=== PATIENT | female | born 1970 | race Two or more races ===

== ENCOUNTER 2024-12-27 14:33 | Outpatient (AMB) | payer OTHER, SELFPAY ==
--- NOTE | 2024-12-27 14:47 | PD.GSCLVISIT ---
[facility] - [facility] 12/27/24 14:50 Height 1.52 m Height Method Stated Weight 97.579 kg Weight Measurement Method Standing Scale BMI 42.0 BP 133/89 H Blood Pressure Source Automatic Cuff Blood Pressure Location Left Upper Arm Position Sitting Respiration 20 Pulse 99 Pulse Source Monitor Temp 97.3 F Temp Source Temporal Artery Scan Pulse Oximetry (%) 95 Oxygen Delivery Method Room Air Med/Allergies Allergies & Medications Allergies No Known Allergies Allergy (Verified 12/27/24 14:51) Medication Reconciliation No Known Home Medications 12/27/24 [History Confirmed 12/27/24] MA Intake Visit Data Collection New Patient or Established: New Patient (never been to [facility]) Seen by Clinical Staff ONLY (RN/MA): No Reason for Visit:: REFERRAL COLONOSCOPY Pain Present Currently: No First Front Ventilator Required: No PCP or OBGYN visit in last 3 months: Yes Hx Now: No Do You Feel Safe at Home: Yes Authorities Contacted: N/A Smoking Status Smoking Status: Never smoker Immunization / Flu Flu Vaccine in the Last 12 Months: Yes Flu Vaccine Exclusion Criteria: Already Received Past Medical History Social History SMOKING STATUS: Smoking status: Never smoker HPI HPI Narrative 54F referred for first screening colonoscopy. She denies any changes in bowel habits, blood in stool, anorexia and unintentional weight loss PMH: None PSHx: None Meds: None Allergies: NKDA Family hx: no known CRC ROS Review of Systems Systems Reviewed: All systems reviewed, normal except as documented Objective/Exam General General Appearance: alert, cooperative and well groomed Resp Respiratory exam: Absent respiratory distress Assessment & Plan Diagnosis / Problem List (1) Encounter for screening colonoscopy for [id number] patient: Status: Acute Assessment & Plan: 54F presenting for first screening colonoscopy. I explained benefits/risks including bleeding, perforation requiring emergency surgery as well as the possibility of needing to abort prematurely for safety. All questions were answered and pt is agreeable to proceeding Office Procedures GNS Level of Care Nursing/Assessment Patient Status: Initial/New Patient Nursing Assessment/Reassesment: Medication Reconciliation, Update PMH in EMR and Vital Signs Coordination of Care: Complex Care and Chronic Disease 1-5, Consent,records obtained, informed consent, Education Simp Pt/Fam, Results/Orders obtained and Staff clarify orders New Patient Charge New Patient Point Assignment: [id number] New Patient Point Charge: PATHOLOGY ASSISTANT Level 3 ([id number]) Patient Portal Questionaires Social History Tobacco History Smoking Status: Never smoker Domestic Abuse History Do You Feel Safe at Home: Yes Review of Systems Report any current symptoms Only answer those that you have currently: Past Medical History Past Medical History Have you ever been diagnosed with any of the following:
[2024-12-27 14:50] VITALS: BP 133/89; PULSE 99; RESP 20; TEMP 36.3; O2SAT 95; BMI 42.0
== END 2024-12-27 15:15 | disposition home or self-care (01) ==
PROVIDERS: PCP Nurse Practitioner Family; Referring Provider Nurse Practitioner Family; Supervising Provider Surgery; Visit Provider Surgery
DX: Z12.11 Encounter for screening for malignant neoplasm of colon (principal)
CPT/HCPCS: 99203; G0463

== ENCOUNTER 2025-02-01 06:50 | Day surgery (SDC) | payer OTHER, SELFPAY ==
[2025-01-31 12:47] LABS: HCG Qualitative,Urine Negative
[2025-01-31 14:59] VITALS: BMI 40.6
[2025-02-01] VITALS (10 sets, daily range): BP systolic 149–199; BP diastolic 86–123; PULSE 67–91; RESP 16–20; TEMP 36.3–36.5; O2SAT 95–100; BMI 40.6
--- NOTE | 2025-02-01 08:14 | SUR.OPER ---
pt received from OR in recovery bay 1. pt asleep but responds to voice, breathing unlabored on room air. v/s stable. report received from Roxane GARCÍA.
--- NOTE | 2025-02-01 08:38 | SUR.PHASEII ---
pt able to tolerate oral fluids without difficulty swallowing or nausea/vomiting.
--- NOTE | 2025-02-01 09:00 | SUR.PHASEII ---
pt awake and alert, pt meets d/c criteria. pt v/s stables. pt awaiting ride in wheelchair in bay 6.
--- NOTE | 2025-02-01 09:40 | SUR.PHASEII ---
pt awake and alert, breathing unlabored on room air. v/s stable. pt able to ambulate to wheelchair with steady gait. d/c instructions given with Jill in room, all questions answered. pt d/c via wheelchair with all belongings.
== END 2025-02-01 09:40 | disposition home or self-care (01) ==
PROVIDERS: Anesthesiology; PCP Obstetrics & Gynecology; Referring Provider Surgery; Visit Provider Surgery
PROC: 0DJD8ZZ Inspection of Lower Intestinal Tract, Via Natural or Artificial Opening Endoscopic (ICD-10-PCS; CPT 45378; principal; 2025-02-01 09:15)
DX: Z12.11 Encounter for screening for malignant neoplasm of colon (principal)
CPT/HCPCS: 45378; 81025; A4217; A4649; J0360; J1200; J2175; J2250; J3010

== ENCOUNTER 2025-02-14 13:45 | Outpatient (AMB) | payer OTHER, SELFPAY ==
[2025-02-14 14:14] VITALS: BP 156/92; PULSE 70; RESP 19; TEMP 36.3; O2SAT 94; BMI 40.6
--- NOTE | 2025-02-14 14:14 | GSCOFFNT_ITS ---
[facility] - [facility] 02/14/25 14:14 Height 1.55 m Height Method Stated Weight 97.636 kg Weight Measurement Method Standing Scale BMI 40.6 BP 156/92 H Blood Pressure Source Automatic Cuff Blood Pressure Location Left Upper Arm Position Sitting Respiration 19 Pulse 70 Pulse Source Monitor Temp 97.3 F Temp Source Temporal Artery Scan Pulse Oximetry (%) 94 L Oxygen Delivery Method Room Air Med/Allergies Allergies & Medications Allergies No Known Allergies Allergy (Verified 02/14/25 14:15) Medication Reconciliation peg 3350-electrolytes 236 gram-22.74 gram-6.74 gram-5.86 gram solution 240 ml PO Q10M Colonoscopy prep #4,000 mL 01/24/25 [Rx Confirmed 02/14/25] ergocalciferol (vitamin D2) 1,250 mcg (50,000 unit) capsule 1,250 mcg PO QWEEK 01/31/25 [History Confirmed 02/14/25] MA Intake Visit Data Collection New Patient or Established: Established Patient (seen at [facility] within 3 years) Seen by Clinical Staff ONLY (RN/MA): No Reason for Visit:: COLONOSCOPY FOLLOW UP Pain Present Currently: No PCP or OBGYN visit in last 3 months: Yes Smoking Status Smoking Status: Former smoker Immunization / Flu Flu Vaccine in the Last 12 Months: No Flu Vaccine Exclusion Criteria: No Exclusion Criteria Past Medical History Past Medical History NEUROLOGIC: Negative Neurological Disorders or Seizures CARDIAC: Negative Cardiac Disorders or Congestive Heart Failure RESPIRATORY: Negative Chronic Obstructive Pulmonary Disease (COPD) GASTROINTESTINAL: Negative Gastrointestinal Disorders GENITOURINARY: Negative Genitourinary Disorders or Renal Disease REPRODUCTIVE: Positive Previous Pregnancies ENDOCRINE: Positive Endocrine Disorders, Diabetes Mellitus Type 2 (PREDIABETES- NO MEDS) and Hypothyroidism (NO MEDS); Negative Diabetes Mellitus Type 1 HEMATOLOGIC: Negative Anemia or Clotting Problems OTHER HISTORY: Negative Falls, Blood Transfusions, Blood Transfusion Reaction, Anesthesia Reactions, Chicken Pox, Measles, Mumps or Cancer Social History SMOKING STATUS: Smoking status: Former smoker ALCOHOL: Alcohol Intake: Former HOUSING: Housing: House ROS Review of Systems Narrative Review of Systems: 54F here for follow-up of screening colonoscopy which was overall normal. Her prep was good and there were no polyps, diverticula or hemorrhoids. She states the procedure was overall tolerable and she had minimal discomfort after Constitutional Constitutional: Reports system reviewed and no additional complaints, except as documented Objective/Exam General General Appearance: alert, cooperative and well groomed Resp Respiratory exam: Absent respiratory distress Assessment & Plan Diagnosis / Problem List (1) Encounter to discuss colonoscopy results: Status: Acute Assessment & Plan: 54F status post screening colonoscopy which was normal. Recommend to repeat screening colonoscopy in 10 years. All questions were answered and patient expressed understanding Office Procedures GNS Level of Care Nursing/Assessment Patient Status: Established Patient Nursing Assessment/Reassesment: Medication Reconciliation, Update PMH in EMR and Vital Signs Coordination of Care: Complex Care and Chronic Disease 1-5, Consent,records obta ined, informed consent, Education Simp Pt/Fam, Results/Orders obtained and Staff clarify orders Established Patient Charge Established Patient Point Assignment: 90 Established Patient Point Charge: EP Level 3 (80-115) Patient Portal Questionaires Social History Living Situation History Housing: House Tobacco History Smoking Status: Former smoker Alcohol History Alcohol Intake: Former Review of Systems Report any current symptoms Only answer those that you have currently: Past Medical History Past Medical History Have you ever been diagnosed with any of the following: Neurological Problems Seizures: No Cardiology Problems Congestive Heart Failure: No Respiratory Problems Chronic Obstructive Pulmonary Disease (COPD): No Genital/Urinary Problems Renal Disease: No Reproductive Problems Previous Pregnancies: Yes Endocrine Problems Diabetes Mellitus Type 1: No Diabetes Mellitus Type 2: Yes (PREDIABETES- NO MEDS) Hypothyroidism: Yes (NO MEDS) Blood Problems Anemia: No Clotting Problems: No Other Problems Falls: No Blood Transfusions: No Blood Transfusion Reaction: No Anesthesia Reactions: No Chicken Pox: No Measles: No Mumps: No Cancer: No
== END 2025-02-14 14:42 | disposition home or self-care (01) ==
LOC: HODSRG 13:45
PROVIDERS: PCP Nurse Practitioner Family; Referring Provider Nurse Practitioner Family; Supervising Provider Surgery; Visit Provider Surgery
DX: Z71.2 Person consulting for explanation of examination or test findings (principal)
CPT/HCPCS: 99213; G0463